=== PATIENT | male | born 1970 | race Caucasian/White ===

== ENCOUNTER 2023-02-01 09:01 | Outpatient (OUT) | payer BC, SELFPAY ==
--- NOTE | 2023-02-01 09:10 | XR_ITS ---
[address] [address] Patient Name: CRESCENCIO MATHEWS MRN: [id number] date: 1970 Sex: M Assigned Patient Location: [facility] Current Patient Location: [facility] Accession/Order Number: [id number] Exam Date: 02/01/2023 09:15 Report Date: 02/01/2023 09:44 At the request of: MERLINE SIERRA Procedure: XR clavicle RT PROCEDURE: XR shoulder RT min 2V, XR clavicle RT HISTORY: Right Clavicle Pain M89.8X1 ; chronic right shoulder pain, limited range of motion, no known injury COMPARISON: None. FINDINGS: BONES:Slight narrowing of the acromioclavicular joint and small undersurface osteophyte. Unremarkable humeral head and glenohumeral joint. SOFT TISSUES:No visible soft tissue swelling. EFFUSION:None visible. OTHER: Negative. XR/XR clavicle RT IMPRESSION: 1. No acute bone abnormality. 2. Mild degenerative changes of the acromioclavicular joint which could predispose to rotator cuff injury. Electronically authenticated by: FREEDOM CA Date: 02/01/2023 09:44
--- NOTE | 2023-02-01 09:11 | XR_ITS ---
The [address] [address] Patient Name: CRESCENCIO MATHEWS MRN: [id number] date: 1970 Sex: M Assigned Patient Location: [facility] Current Patient Location: [facility] Accession/Order Number: [id number] Exam Date: 02/01/2023 09:15 Report Date: 02/01/2023 09:44 At the request of: MERLINE SIERRA Procedure: XR shoulder RT min 2V PROCEDURE: XR shoulder RT min 2V, XR clavicle RT HISTORY: Right Clavicle Pain M89.8X1 ; chronic right shoulder pain, limited range of motion, no known injury COMPARISON: None. FINDINGS: BONES:Slight narrowing of the acromioclavicular joint and small undersurface osteophyte. Unremarkable humeral head and glenohumeral joint. SOFT TISSUES:No visible soft tissue swelling. EFFUSION:None visible. OTHER: Negative. XR/XR shoulder RT min 2V IMPRESSION: 1. No acute bone abnormality. 2. Mild degenerative changes of the acromioclavicular joint which could predispose to rotator cuff injury. Electronically authenticated by: FREEDOM CA Date: 02/01/2023 09:44
== END 2023-02-01 09:02 | disposition home or self-care (01) ==
LOC: RAD 09:05
PROVIDERS: PCP Family Medicine; Visit Provider Family Medicine
DX: M25.511 Pain in right shoulder (principal); M89.8X1 Other specified disorders of bone, shoulder
CPT/HCPCS: 73000; 73030

== ENCOUNTER 2023-02-12 13:23 | Outpatient (OUT) | payer BC, SELFPAY ==
--- NOTE | 2023-02-12 13:27 | MR_ITS ---
[address] [address] Patient Name: CRESCENCIO MATHEWS MRN: [id number] date: 1970 Sex: M Assigned Patient Location: MRI Current Patient Location: MRI Accession/Order Number: [id number] Exam Date: 02/12/2023 14:02 Report Date: 02/12/2023 21:11 At the request of: MERLINE SIERRA Procedure: MR shoulder RT wo con EXAM: MR shoulder RT wo con HISTORY: Right shoulder pain COMPARISON: X-rays 02/01/2023 TECHNIQUE: Multiplanar, multi sequential MRI sequences were performed. FINDINGS: Moderate degenerative changes of the acromioclavicular joint consistent with capsular hypertrophy, osteophytes and irregularity of the distal clavicle and adjacent acromion articular surfaces and subchondral bone. This complex mildly indents on the dorsal fibers of the supraspinatus myotendinous junction (sagittal 7 and coronal 11). Mild amount of reactive fluid within the subacromial-subdeltoid space. Age-related changes of the coracoacromial ligament. The coracohumeral and coracoclavicular ligaments exhibit no gross visualized abnormality. Osteophytes are present off the humeral head. No fracture, dislocation, subluxation or osseous lesion. Small glenohumeral joint effusion. The superficial soft tissues are free of edema, hematoma, mass or cyst. Thickening and interstitial edema of the subscapularis tendon with an longitudinal interstitial signal irregularity suggesting a longitudinal split (axial 16 and sagittal 9). No avulsion from the humeral head. Thickening and interstitial edema of the supraspinatus and infraspinatus tendons with no discrete tear. The teres minor tendon appears unremarkable. No muscle edema, hematoma, atrophy or fatty infiltration. No avulsion of the biceps tendon long head from the supraglenoid tubercle or bicipital tunnel. The biceps tendon long head exhibits no gross tear. No gross irregularity the biceps labral anchor. No gross irregularity of the glenoid labrum, however, mild fraying of the posterior superior aspect approximately the 11:00 position cannot be excluded. Thinning of the cephalad cartilage of the humeral head with partial thickness surface irregularities. Mild thickening of the glenoid cartilage. No gross visualized full-thickness chondral defect. MR/MR shoulder RT wo con IMPRESSION: 1. Thickening and interstitial edema of the subscapularis tendon with an vertical interstitial signal irregularity suggesting a longitudinal split. 2. Supraspinatus and infraspinatus tendinopathy. 3. Questionable fraying of the posterior superior aspect of the glenoid labrum. 4. Humeral head and glenoid cartilage loss. 5. Moderate acromioclavicular joint degenerative changes and a constellation of findings suggesting external impingement. Electronically authenticated by: JOSE ANTONIO EDMOND Date: 02/12/2023 21:11
== END 2023-02-12 13:24 | disposition home or self-care (01) ==
LOC: MRI 13:23
PROVIDERS: PCP Family Medicine; Visit Provider Family Medicine
DX: S46.001A Unspecified injury of muscle(s) and tendon(s) of the rotator cuff of right shoulder, initial encounter (principal)
CPT/HCPCS: 73221

== ENCOUNTER 2024-06-05 07:00 | Outpatient (OUT) | payer BC, SELFPAY ==
[2024-06-05 07:21] LABS: Basophils Percent Auto 0.3 % (0.2-2.0); Eosinophils Absolute Auto 0.1 10^3/uL (0.0-0.7); Eosinophils Percent Auto 1.7 % (0.9-7.0); Hematocrit 45.5 % (42.0-54.0); Hemoglobin 15.2 g/dL (14.0-18.0); Immature Granulocytes Abs Auto 0.07 10^3/uL (0.00-0.03); Lymphocytes Absolute Auto 2.1 10^3/uL (1.2-3.8); Lymphocytes Percent Auto 29.2 % (20.5-60.0); Mean Corpuscular HGB Conc 33.4 g/dL (29.9-35.2); Mean Corpuscular Hemoglobin 29.4 pg (25.9-34.0); Mean Platelet Volume 9.7 fL (9.5-13.5); Monocytes Absolute Auto 0.6 10^3/uL (0.3-0.8); Neutrophils Absolute Auto 4.3 10^3/uL (1.4-6.5); Neutrophils Percent Auto 59.8 % (43.0-75.0); Platelet Count 255 10^3/uL (150-450); Red Blood Count 5.17 10^6/uL (4.70-6.10); White Blood Count 7.2 10^3/uL (4.0-11.0)
[2024-06-05 08:12] LABS: Estimated Average Glucose 111 mg/dL; Glycohemoglobin A1C 5.5 % (4.5-6.2)
[2024-06-05 14:29] LABS: Alanine Aminotransferase 28 U/L (16-63); Albumin Globulin Ratio 1.2; Albumin Level 3.8 g/dL (3.4-5.0); Alkaline Phosphatase 90 U/L (46-116); Anion Gap 12.3; Aspartate Amino Transferase 9 U/L (15-37); BUN Creatinine Ratio 17.2; Bilirubin Direct 0.1 mg/dL (0.0-0.2); Calcium 8.7 mg/dL (8.5-10.1); Carbon Dioxide 29.8 mmol/L (21.0-32.0); Chloride 106 mmol/L (98-107); Chol HDL Ratio 4.9; Cholesterol 176 mg/dL (<=200); Estimated GFR (African America >60 (>=60 mL/min/1.73m^2); Estimated GFR (Non-African Ame >60 (>=60 mL/min/1.73m^2); Globulin 3.2 g/dL; Glucose 83 mg/dL (74-106); HDL Cholesterol 36 mg/dL (40-60); Potassium 4.1 mmol/L (3.5-5.1); Sodium 144 mmol/L (136-145); Triglycerides 90 mg/dL (<=150)
[2024-06-06 22:59] LABS: Bilirubin Total 0.5 mg/dL (0.2-1.0)
== END 2024-06-05 07:01 | disposition home or self-care (01) ==
LOC: LAB 07:00
PROVIDERS: PCP Family Medicine; Visit Provider Family Medicine
DX: Z00.00 Encounter for general adult medical examination without abnormal findings (principal)
CPT/HCPCS: 36415; 80048; 80061; 80076; 83036; 84443; 85025; G0103

== ENCOUNTER 2025-03-17 14:46 | Outpatient (OUT) | payer BC, SELFPAY ==
--- OUTSIDE RECORDS SUMMARY | 2025-03-17 14:55 | XMS_ITS | Clinical Summary ---
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 Take before meals. 90 tablet 5Active sertraline (Zoloft) 100 MG tablet Indications:Major depressive disorder, recurrent, mild,Major depressive disorder, recurrent episode, mildTAKE 1 TABLET BY MOUTH EVERYDAY AT BEDTIME 90 tablet 5Active Active Problems ProblemNoted DateDiagnosed DateAdult enmhlvwwvsglap20/13/2025Primary osteoarthritis of right xtivlslw66/09/2025nnual physical exam06/04/2024 Assessment & Plan (06/04/2024 3:18 PM EST): Due for labs. Discussed proper diet and regular aerobic exercise. Need aerobic exercise 5-6 days a week for 30 minutes at a time. Smaller portions and limit total calories. Colonoguard normal in 2022. Tetanus every 10 years. Advised not to smoke. Class 2 obesity due to excess calories without serious comorbidity with body mass index (BMI) of 36.0 to 36.9 in adult06/04/2024MDD (major depressive disorder), recurrent episode, mild06/04/2024OSA (obstructive sleep apnea) 01/09/2025Diastasis recti06/04/2024 Assessment & Plan (06/04/2024 3:19 PM EST): Noted bulging in ventral abdomen with valsalva and likely diastasis recti. Discussed benign nature of condition and monitor. If develop increased pain or lump increases in size will need to see general surgery. Encounters DateTypeDepartmentCare LtraInqwsmkqvli54/14/2025[facility] [address] [place] [address] Jordan Dickerson MD Major depressive disorder, recurrent, mild ; Major depressive disorder, recurrent episode, mild12/28/2024Ref[facility] [address] [place] [address] Jordan Dickerson MD Adult hypothyroidismfrom Last 3 Months Social History Tobacco UseTypesPacks/DayYears UsedDateSmoking Tobacco: NeverSmokeless Tobacco: Current Tobacco Cessation:Ready to Q uit: Not Asked; Counseling Given: Not Answered Sex and Gender InformationValueDate RecordedSex Assigned at BirthNot on file Legal SywEkrm7208/08/2022 7:20 PM EDTGender IdentityNot on fileSexual Orientation Not on file Last Filed Vital Signs Vital SignReadingTime TakenCommentsBlood Yxcwavyo515/78006/04/2024 2:50 PM EST Riepl2037/09/2025 2:50 PM KGJFegfjeubqll75.6 ??C (97.9 ??F)06/04/2024 2:50 PM ESTRespiratory Rate--Oxygen Uyfnvprnyx29%06/04/2024 2:50 PM ESTInhaled Oxygen Concentration--Jxewts007 kg (245 lb)06/04/2024 2:50 PM RASSdbnzb845.3 cm (5' 9 ) 06/04/2024 2:50 PM ESTBody Mass Index36.18006/04/2024 2:50 PM EST Plan of Treatment Health MaintenanceDue DateLast DoneCommentsCT Gqydkhkjhfon1971Colonoscopy 1970FIT1971FOBT1970 6061Ecadbcnydblrs1971Influenza Vaccine (#1)5Colorectal Cancer Ktczbyime52/01/2026FIT-DNA6010/25/2022 Insurance * Guarantor: VikashhiroJusticeAccount TypeRelation to PatientDate of PhoneBilling AddressPersonal/QftfkiRfyy1970 [address] [address] Care Teams Team MemberRelationshipSpecialtyStart DateEnd Date Jordan Dickerson MD PCP - GeneralFamily Medicine12/25/22 Jordan Dickerson MD [address] [facility] [place] [address] PCP - [place] [facility]07/25/24
--- OUTSIDE RECORDS SUMMARY | 2025-03-17 14:57 | XMS_ITS | CCD ---
Author Organization [facility] Care Team Providers Care Staff Electrical Engineer Name Role Phone Jenny Ga Unavailable Ramon Sorto Unavailable ZACHARY CALDERÓN Consulting Unavailable RADHA, DR SALCEDO Attending Unavailable BALL, DR SALCEDO Admitting Unavailable BALL, DR SALCEDO Primary Care Unavailable KAITLYNN, ZACHARY Consulting Unavailable KAITLYNN, ZACHARY Attending Unavailable BALL, DR SALCEDO Primary Care Unavailable KAITLYNN, ZACHARY Admitting Unavailable NADERER, DR JORDAN Price Consulting Unavailable NADERER, DR JORDAN Price Attending Unavailable NADERER, DR JORDAN Price Admitting Unavailable NADERER, DR JORDAN Price Primary Care Unavailable NADERER, DR JORDAN Price Primary Care Unavailable NADERER, DR JORDAN Price Consulting Unavailable NADERER, DR JORDAN Price Attending Unavailable NADERER, DR JORDAN Price Admitting Unavailable KAITLYNN, ZACHARY Consulting Unavailable KAITLYNN, ZACHARY Attending Unavailable KAITLYNN, ZACHARY Admitting Unavailable BALL, DR SALCEDO Primary Care Unavailable Jordan Sierra MD Primary Care Provider [phone] JORDAN SIERRA Attending Unavailable Medications Current Medications MedicationDrug Class(es)DatesSig (Normalized)Sig (Original)acetaminophen 325 mg / HYDROcodone bitartrate 5 mg oral tablet (2 sources)Opioid AgonistStart: 14-96-7578wxly 1 tablet by mouth every four to six hours as neededHYDROcodone-Acetaminophen 5-325 MG 1 tablet as needed Orally every 4-6 hrs for 7 days Dec, Activecephalexin 500 mg oral tablet (2 sources)Cephalosporin AntibacterialStart: 58-51-3466tzhb 1 tablet by mouth every eight hoursCephalexin 500 MG 1 tablet Orally TID for 3 days Dec, Activelevothyroxine sodium 0.075 mg oral tablet (1 source)l-ThyroxineStart: 94-62-4126eeuc 1 tablet by mouth before mealtime levothyroxine (Synthroid) 75 MCG tablet Indications: Adult hypothyroidism (CMS/HCC) Take 1 tablet (75 mcg) by mouth in the morning. Take before meals. 30 tablet 2 06/08/2024 Activesertraline 100 mg oral tablet (7 sources)Serotonin Reuptake InhibitorStart: 01-73-3577pvfy 1 tablet by mouth once daily at bedtimesertraline (Zoloft) 100 MG tablet Indications: Major depressive disorder, recurrent, mild (HCC) (CMS/HCC) , Major depressive disorder, recurrent episode, mild (HCC) (CMS/HCC) TAKE 1 TABLET BY MOUTH EV ERYDAY AT BEDTIME 90 tablet 3 12/27/2023 Activetake 1 tablet by mouth once daily Sertraline HCl 100 MG 1 tablet Orally Once a day Active Problems Active Problems Problem ClassificationProblemDateDocumented DateEpisodic/ChronicMood disorders (4 sources)Recurrent major depressive episodes, mild ; Translations: [Major depressive disorder, recurrent, mild]Onset: hronic Osteoarthritis (4 sources)Osteoarthritis of joint of right shoulder region; Translations: [Primary osteoarthritis, right shoulder]Onset: 443234-37-4544HrigsuwUijto connective tissue disease (6 sources)Diastasis recti; Translations: [Separation of muscle (nontraumatic), other site]Onset: 938864-96-7620JecuncmvGvugd nutritional; endocrine; and metabolic disorders (4 sources)Obesity caused by energy imbalance; Translations: [Class 2 obesity due to excess calories without serious comorbidity with body mass index (BMI) of 36.0 to 36.9 in adult]Onset: 220068-55-7259KuhxlfqNxzgotoy codes; unclassified (4 sources)Obstructive sleep apnea syndrome; Translations: [Obstructive sleep apnea (adult) (pediatric)]Onset: 828329-86-1323XjblupdTdtebsl disorders (2 sources)Hypothyroidism; Translations: [Hypothyroidism, unspecified]Onset: 999575-93-4863QizthdtXtizfghgsnid (3 sources)CONTACT W/AND (SUSP) EXPOS COVID-19; Translations: [CONTACT W/AND (SUSP) EXPOS COVID-19]Onset: 48-48-3370Lgton infection (1 source)COVID-19; Translations: [COVID-19]Onset: 08-31-2022 Past or Other Problems Problem ClassificationProblemDateDocumented DateEpisodic/Chronic Administrative/social admission (4 sources)Encounter for pre-employment examination; Translations: [ENCOUNTER FOR PRE-EMPLOYMENT EXAM]Onset: 24-62-6860RtsvdatuNnszs disorders and dislocations; trauma-related (1 source)Other tear of medial meniscus, current injury, right knee, subsequent encounterOnset: 04-13-2021 Resolved: 54-82-0757ZqppjcgiAsgatyax codes; unclassified (1 source)Other specified postprocedural statesOnset: 04-13-2021 Resolved: 35-65-1560YhgefyqdByaurpmiqoia (1 source)CONTACT W/AND (SUSP) EXPOS COVID-19; Translations: [CONTACT W/AND (SUSP) EXPOS COVID-19]Onset: 09-01-2022 Results Test NameValueInterpretationReference RangeFacilityALL CBC WITH AUTO DIFFon [id number] ABSOLUTE ECTT1TDCI HealthcareBasophils/100 WBC (Bld)0.3 %0.2 - 2.0 %[facility]OM[facility] HealthcareEosinophils/100 WBC (Bld)1.7 %0.9 - 7.0 %[facility] Erythrocyte distribution width (RBC) [Ratio]12 %11.0 - 15.0 %[facility] Hematocrit (Bld) [Volume fraction]45.5 %42.0 - 54.0 %[facility] HealthcareHemoglobin (Bld) [Mass/Vol]15.2 g/dL14.0 - 18.0 g/dLNOMS HealthcareIMMATURE GRANULOCYTES ABS AUTO0.07HighNOMS HealthcareImmature granulocytes/100 WBC (Bld)1 %High0.0 - 0.5 %[facility] HealthcareInterpretation and review of laboratory resultsAbnormalNOMS HealthcareLYMPHOCYTES ABSOLUTE AUTO2.1NOMS HealthcareLymphocytes/100 WBC (Bld) 29.2 %20.5 - 60.0 %[facility] HealthcareMCH (RBC) [Entitic mass]29.4 pg25.9 - 34.0 pg [facility]Po[facility] HospitalMCHC (RBC) [Mass/Vol]33.4 g/dL29.9 - 35.2 g/dLCenterPointe HospitalMCV (RBC) [Entitic vol]88 fL80.0 - 94.0 fLCenterPointe HospitalMONOCYTES ABSOLUTE AUTO0.6 NOM HealthcareMonocytes/100 WBC (Bld)8 %1.7 - 12.0 %[facility] HealthcareNEUTROPHILS ABSOLUTE AUTO4.3NONY HealthcareNeutrophils/100 WBC (Bld)59.8 %43.0 - 75.0 %[facility] HealthcarePlatelet mean volume (Bld) [Entitic vol]9.7 fL9.5 - 13.5 fLCenterPointe HospitalTBH EO #0.1NOMS HealthcareTBH [id number] Midwest DivisionTB RBC5.17NOMS [facility] WBC7.2NOMS HealthcareCLINISYNCNCedar County Memorial HospitalGLYCOHEMOGLOBIN A1Con 35-95-4368XQV RECOMMENDATIONSEE BELOWLakeHealth TriPoint Medical CenterComment on above:Result Comment: ADA RECOMMENDED LIMIT 4.0 - 6.0 ADA THERAPEUTIC TARGET < 7.0 ACTION SUGGESTED > 7.0Performed By: #### HEPBSRF #### [facility] [address] [place] [address] Dr. Jaspreet CansecoGlucose [Mass/Vol]117 mg/dLLakeHealth TriPoint Medical CenterComment on above:Performed By: #### HEPBSRF #### [facility] [address] [place] [address] Dr. Jaspreet CansecoHbA1c (Bld) [Mass fraction]5.7 %Normal4.5-6.2The [facility] HospitalComment on above:Performed By: #### HEPBSRF #### [facility] [address] [place] [address] Dr. Jaspreet RamirezC AUTO DIFFon [id number] #0.0 103/ulNormal0.0-0.1The [facility] HospitalComment on above:Performed By: #### CBC #### [facility] [address] [place] [address] Dr. Jaspreet CansecoBasophils/100 WBC (Bld)0.4 %Normal0.2-2.0The [facility] Comment on above:Performed By: #### CBC #### [facility] [address] [place] [address] Dr. Jaspreet Montanez #0.1 103/ulNormal0.0-0.7The [facility] HospitalComment on above: Performed By: #### CBC #### [facility] [address] [place] [address] Dr. Jaspreet Alejandraosinophils/100 WBC (Bld)1.7 %Normal0.9-7.0The [facility] Comment on above:Performed By: #### CBC #### [facility] [address] [place] [address] Dr. Jaspreet Alejandrarythrocyte distribution width (RBC) [Ratio]12.6 %Bgsuvc06.0-15.[address] [facility] HospitalComment on above:Performed By: #### CBC #### [facility] [address] [place] [address] Dr. Jaspreet CansecoHematocrit (Bld) [Volume fraction]42.7 %Phhbjv08.0-54.0The [facility] HospitalComment on above:Performed By: #### CBC #### [facility] [address] [place] [address] Dr. Jaspreet CansecoHemoglobin (Bld) [Mass/Vol]14.2 g/yJVyelnv40.0-18.0The [facility] HospitalComment on above:Performed By: #### CBC #### [facility] [address] [place] [address] Dr. Jaspreet Melo #0.04 10e3/ulCritically high0.00-0.03The [facility] Comment on above:Performed By: #### CBC #### [facility] [address] [place] [address] Dr. Jaspreet Melo %0.5 %Normal0.0-0.5The [facility] HospitalComment on above: Performed By: #### CBC #### [facility] [address] [place] [address] Dr. Jaspreet Koo #2.3 103/ulNormal1.2-3.8The [facility] HospitalComment on above:Performed By: #### CBC #### [facility] [address] [place] [address] Dr. Jaspreet Blancashocytes/100 WBC (Bld)29.1 %Njbgjn19.5-60.0The [facility] HospitalComment on above:Performed By: #### CBC #### [facility] [address] [place] [address] Dr. Jaspreet Pickett DIFF REQNONormalThe [facility] HospitalComment on above: Performed By: #### CBC #### [facility] [address] [place] [address] Dr. Jaspreet Hodges (RBC) [Entitic mass]28.7 qgOtsqyu96.9-34.0The [facility] HospitalComment on above:Performed By: #### CBC #### [facility] [address] [place] [address] Dr. Jaspreet Hodges (RBC) [Mass/Vol]33.3 g/oORdcdly93.9-35.2The [facility] HospitalComment on above:Performed By: #### CBC #### [facility] [address] [place] [address] Dr. Jaspreet Hodges (RBC) [Entitic vol]86.4 aZKtllkv32.0-94.0The [facility] HospitalComment on above:Performed By: #### CBC #### [facility] [address] [place] [address] Dr. Jaspreet Landon #0.6 103/ulNormal0.3-0.8The [facility] HospitalComment on above:Performed By: #### CBC #### [facility] [address] [place] [address] Dr. Jaspreet Haydenocytes/100 WBC (Bld)7.1 %Normal1.7-12.0The [facility] Comment on above:Performed By: #### CBC #### [facility] [address] [address] [address] Jaspreet TurkUT #4.7 103/ulNormal1.4-6.5The [facility] HospitalComment on above:Performed By: #### CBC #### [facility] [address] [place] [address] Dr. Jaspreet Turkutrophils/100 WBC (Bld)61.2 %Msbkyb51.0-75.0The [facility] HospitalComtrinity health [facility] on above:Performed By: #### CBC #### [facility] [address] [place] [address] Dr. Jaspreet CansecoPlatelet mean volume (Bld) [Entitic vol]9.6 fLNormal9.5-13.5The [facility] on above:Performed By: #### CBC #### [facility] [address] [place] [address] Dr. Jaspreet CansecoPLT224 103/wtBtlebb276-350Aqd [facility] on above: Performed By: #### CBC #### [facility] [address] [place] [address] Dr. Jaspreet CansecoRBC4.94 106/ulNormal4.70-6.10The [facility] HospitalComtrinity health [facility] on above:Performed By: #### CBC #### [facility] [address] [place] [address] Dr. Jaspreet CansecoWBC7.7 103/ulNormal4.0-11.0The [facility] HospitalComtrinity health [facility] on above: Performed By: #### CBC #### [facility] [address] [place] [address] Dr. Jaspreet CansecoGLYCOHEMOGLOBIN A1Con [id number] RECOMMENDATIONSEE BELOWNormal [facility] HospitalComtr[facility] on above:Result Comment: ADA RECOMMENDED LIMIT 4.0 - 6.0 ADA THERAPEUTIC TARGET < 7.0 ACTION SUGGESTED > 7.0Performed By: #### HEPBSRF #### [facility] [address] [place] [address] Dr. Jaspreet CansecoGlucose [Mass/Vol]108 mg/dLNormalThe [facility]el HospitalComment on above:Performed By: #### HEPBSRF #### [facility] [address] [address] [address] Jaspreet CansecoHbA1c (Bld) [Mass fraction]5.4 %Normal4.5-6.2The [facility]omerene Hospitalment on above:Performed By: #### HEPBSRF #### [facility] [address] [address] [address] Jaspreet CasanovaID PROFILEon [id number]-HDL RATIO NORMSEE CentervilleComtr[facility] on above:Result Comment: 3.3 - 4.4 LOW RISK 4.4 - 7.1 AVERAGE RISK 7.1 - 11.0 MODERATE RISK >11.0 HIGH RISKPerformed By: #### LIVER, BMP, LIPID, TSH #### [facility] [address] [address] [address] Jaspreet Calabreseesterol [Mass/Vol]168 mg/dLNormal<=200The [facility] Comment on above:Performed By: #### LIVER, BMP, LIPID, TSH #### [facility] [address] [address] [address] Jaspreet Calabreseesterol in HDL [Mass/Vol]34 mg/dLCritically grr68-30Jvp [facility] on above:Performed By: #### LIVER, BMP, LIPID, TSH #### [facility] [address] [address] [address] Jaspreet CansecoCholesterol in LDL [Mass/Vol]114.6 mg/dLNoHolzer Health SystemComment on above:Performed By: #### LIVER, BMP, LIPID, TSH #### [facility] [address] [address] [address] Jaspreet Calabreseesteraurelia.total/Cholesterol in HDL [Mass ratio]4.9 {ratio} NormalThe [facility]omerene Hospitalment on above:Performed By: #### LIVER, BMP, LIPID, TSH #### [facility] [address] [address] [address] Jaspreet TaylorL NORMAL> or = 60 mg/dl - LOW CARDIOVASCULAR RISK <40 mg/dl - HIGH CARDIOVASCULAR RISKLakeHealth TriPoint Medical CenterComment on above:Performed By: #### LIVER, BMP, LIPID, TSH #### [facility] [address] [place] [address] Dr. Jaspreet Cardenas CALC NORMALSEE BELOWLakeHealth TriPoint Medical CenterComment on above:Result Comment: <100 mg/dl OPTIMAL 100 - 129 mg/dl NEAR OR ABOVE OPTIMAL 130 - 159 mg/dl BORDERLINE HIGH 160 - 189 mg/dl HIGH >190 mg/dl VERY HIGH Performed By: #### LIVER, BMP, LIPID, TSH #### [facility] [address] [place] [address] Dr. Jaspreet CansecoTriglyceride [Mass/Vol]97 mg/dLNormal<=150The [facility] Comment on above:Performed By: #### LIVER, BMP, LIPID, TSH #### [facility] [address] [place] [address] Dr. Jaspreet MarksLDL CALC19.4 mg/dLNoHolzer Health SystemComment on above: Performed By: #### LIVER, BMP, LIPID, TSH #### [facility] [address] [place] [address] Dr. Jaspreet Nolen PROFILEon 59-07-4213Kvjsqkl [Mass/Vol]3.9 g/dLNormal3.4-5.[address] [facility] HospitalComment on above:Performed By: #### LIVER, BMP, LIPID, TSH #### [facility] [address] [place] [address] Dr. Jaspreet CansecoAlbumin/Globulin [Mass ratio]1.1 {ratio}NormalThe [facility] HospitalComment on above:Performed By: #### LIVER, BMP, LIPID, TSH #### [facility] [address] [place] [address] Dr. Jaspreet Ferrer [Catalytic activity/Vol]91 U/WNklcwg88-678Mgq [facility] HospitalComment on above:Performed By: #### LIVER, BMP, LIPID, TSH #### [facility] [address] [place] [address] Dr. Yilan ChangALT [Catalytic activity/Vol]40 U/CQgwvfj64-20Uhv [facility] HospitalComment on above:Performed By: #### LIVER, BMP, LIPID, TSH #### [facility] [address] [address] [address] Jaspreet CansecoAST [Catalytic activity/Vol]26 U/KNrsrqp37-43Aui [facility] HospitalComment on above:Performed By: #### LIVER, BMP, LIPID, TSH #### [facility] [address] [address] [address] Jaspreet MarieI, CONJUGATED0.1 mg/dLNormal0.0-0.2[facility] Comment on above:Performed By: #### LIVER, BMP, LIPID, TSH #### [facility] [address] [place] [address] Dr. Jaspreet Marieirubin [Mass/Vol]0.6 mg/dLNormal0.2-1.0[facility] Comment on above:Performed By: #### LIVER, BMP, LIPID, TSH #### [facility] [address] [place] [address] Dr. Jaspreet CansecoGlobulin (S) [Mass/Vol]3.4 g/dLNormalThe [facility] HospitalComment on above:Performed By: #### LIVER, BMP, LIPID, TSH #### [facility] [address] [place] [address] Dr. Jaspreet CansecoProtein [Mass/Vol]7.3 g/dLNormal6.4-8.2[facility] Comment on above:Performed By: #### LIVER, BMP, LIPID, TSH #### [facility] [address] [place] [address] Dr. Jaspreet CansecoPROF CHEM 8 (BAS METB)on 68-69-1142Tuyrc gap [Moles/Vol]11.2 mmol/LNormalWadsworth-Rittman HospitalComment on above:Performed By: #### LIVER, BMP, LIPID, TSH #### [facility] [address] [place] [address] Dr. Jaspreet CansecoCalcium [Mass/Vol]8.7 mg/dLNormal8.5-10.1[facility] Comment on above:Performed By: #### LIVER, BMP, LIPID, TSH #### [facility] [address] [address] [address] Jaspreet CansecoChloride [Moles/Vol]106 mmol/PMxhjhq07-366Cau [facility] Comment on above:Performed By: #### LIVER, BMP, LIPID, TSH #### [facility] [address] [place] [address] Dr. Jaspreet CansecoCO2 [Moles/Vol]25.9 mmol/GKleozl73.0-32.0The [facility] Comment on above:Performed By: #### LIVER, BMP, LIPID, TSH #### [facility] [address] [place] [address] Dr. Jaspreet CansecoCreatinine [Mass/Vol]1.06 mg/dLNormal0.70-1.30The [facility] HospitalComment on above:Performed By: #### LIVER, BMP, LIPID, TSH #### [facility] [address] [place] [address] Dr. Jaspreet AlejandraGFR-AF SOUTH AFRICAN>60Normal>=60The [facility] HospitalComment on above:Performed By: #### LIVER, BMP, LIPID, TSH #### [facility] [address] [place] [address] Dr. Jaspreet AlejandraGFR-NON AF SOUTH AFRICAN>60Normal>=60The [facility] HospitalComment on above:Performed By: #### LIVER, BMP, LIPID, TSH #### [facility] [address] [place] [address] Dr. Jaspreet CansecoGlucose [Mass/Vol]112 mg/dLCritically mwdn63-597Rot [facility] HospitalComment on above:Performed By: #### LIVER, BMP, LIPID, TSH #### [facility] [address] [place] [address] Dr. Jaspreet CansecoPotassium [Moles/Vol]4.1 mmol/LNormal3.5-5.1[facility] Comment on above:Performed By: #### LIVER, BMP, LIPID, TSH #### [facility] [address] [address] [address] Jaspreet CansecoSodium [Moles/Vol]139 mmol/QEdyfdj731-222Nyi [facility] Comment on above:Performed By: #### LIVER, BMP, LIPID, TSH #### [facility] [address] [place] [address] Dr. Jaspreet Yan nitrogen [Mass/Vol]19.0 mg/dLCritically high7.0-18.0The [facility] HospitalComment on above:Performed By: #### LIVER, BMP, LIPID, TSH #### [facility] [address] [place] [address] Dr. Jaspreet Yan nitrogen/Creatinine [Mass ratio]17.9 mg/mgNormalThe [facility] HospitalComment on above:Performed By: #### LIVER, BMP, LIPID, TSH #### [facility] [address] [place] [address] Dr. Jaspreet Arita 69-11-0303CZG0.314 uIU/mLNormal0.358-3.740The [facility] HospitalComment on above:Performed By: #### LIVER, BMP, LIPID, TSH #### [facility] [address] [place] [address] Dr. Jaspreet NickMPTOMATIC COVID-19 ANTIGENon [id number] StatementSEE BELOW NormalThe [facility] on above:Result Comment: This test has not been FDA cleared or approved, but has been authorized by the FDA under an Emergency Use Authorization (EUA) for use by authorized laboratories certified under CLIA that meet the requirements to perform moderate or high complexity testing. This test has been authorized only for the detection of proteins from SARS-CoV-2, not for any other viruses or pathogens. The emergency use of this test is authorized for the duration of the declaration that circumstances exist justifying the authorization of emergency use of in vitro diagnostic tests for detection and/or diagnosis of Covid-19 under section 564(b)(1) of the Act, 21 U.S.C. 360bbb-3(b)(1), unless the declaration is terminated or authorization is revoked sooner.Performed By: #### HEPBSRF #### [facility] [address] [place] [address] Dr. Jaspreet Sheffield-CoV-2 (COVID-19) RNA ALEXANDER+probe Ql (Unsp spec)NegativeNormal NEGATIVEThe [facility] on above:Performed By: #### HEPBSRF #### [facility] [address] [place] [address] Dr. Jaspreet CansecoCovid-19 PCR ([facility])on [id number]-CoV-2 (COVID-19) RNA ALEXANDER+probe Ql (Unsp spec)DetectedAbnormalNOT DETECTEDThe [facility] on above:Result Comment: This test is not yet approved or cleared by the [place] FDA. When there are no FDA-approved or cleared tests available, and other criteria are met, FDA can make tests available under an emergency access mechanism called an Emergency Use Authorization (EUA). The EUA for this test is supported by the Manager Part of Health and Human Service's declaration that circumstances exist to justify the emergency use of in vitro diagnostics for the detection and/or diagnosis of the virusthat causes COVID-19. This EUA will remain in effect for the duration of the COVID-19 declaration justifying emergency of IVDs, unless it is terminated or revoked by the FDA (after which the test mayno longer be used).Performed By: #### HEPBSRF #### [facility] [address] [place] [address] Dr. Jaspreet CansecoINFLKAMLESHNZA A AND B AGon [id number] [facility] on above:Result Comment: Negative for Flu A protein angiten. Infection due to Flu A cannot be ruled out. FluA angiten in the sample may be below the detection limit of the test.Performed By: #### INFLUAB #### [facility] [address] [place] [address] Dr. Jaspreet CansecoINFLUBNEGHSMIHIR [facility] on above: Result Comment: Negative for Flu B protein antigen. Infection due to Flu B cannot be ruled out. FluB antigen in the sample may be below the detection limit of the test.Performed By: #### INFLUAB #### [facility] [address] [place] [address] Dr. Jaspreet Price AGNegativeNormalNEGATIVE SEE COMMENTThe [facility] HospitalComment on above:Performed By: #### INFLUAB #### [facility] [address] [place] [address] Dr. Jaspreet Rose AGNegativeNormalNEGATIVE SEE COMMENTThe [facility] HospitalComment on above:Performed By: #### INFLUAB #### [facility] [address] [place] [address] Dr. Jaspreet HsuMATIC COVID-19 ANTIGENon [id number] StatementSEE BELOW NormalThe [facility] HospitalComment on above:Result Comment: This test has not been FDA cleared or approved, but has been authorized by the FDA under an Emergency Use Authorization (EUA) for use by authorized laboratories certified under CLIA that meet the requirements to perform moderate or high complexity testing. This test has been authorized only for the detection of proteins from SARS-CoV-2, not for any other viruses or pathogens. The emergency use of this test is authorized for the duration of the declaration that circumstances exist justifying the authorization of emergency use of in vitro diagnostic tests for detection and/or diagnosis of Covid-19 under section 564(b)(1) of the Act, 21 U.S.C. 360bbb-3(b)(1), unless the declaration is terminated or authorization is revoked sooner.Performed By: #### CVDAGS #### [facility] [address] [place] [address] Dr. Jaspreet UrrutiaRS-CoV-2 (COVID-19) RNA ALEXANDER+probe Ql (Unsp spec)NegativeNormal NEGATIVEThe Bethel HospitalComment on above:Performed By: #### CVDAGS #### [facility] [address] [place] [address] Dr. Jaspreet CansecoQUANTIFERON TB GOLD PLUSon 27-96-7651HkeqzyHWHBR CriteriaComment NormalThe [facility] Charles HospitalComment on above:Result Comment: QuantiFERON-TB Gold Plus is a qualitative indirect test for M tuberculosis infection (including disease) and is intended for use in conjunction with risk assessment, radiography, and other medical and diagnostic evaluations. The QuantiFERON-TB Gold Plus result is determined by subtracting the Nil value from either TB antigen (Ag) value. The Mitogen tube serves as a control for the test.Performed By: #### HEPBSRF #### [facility] [address] [place] [address] Dr. Jaspreet Smith IncubationIncubation performed.NormalWadsworth-Rittman HospitalComment on above:Performed By: #### HEPBSRF #### [facility] [address] [place] [address] Dr. Jaspreet Smith Mitogen Value>10.00NoalThTriHealth Bethesda Butler HospitalComment on above:Performed By: #### HEPBSRF #### [facility] [address] [place] [address] Dr. Jaspreet Smith Nil Value0.03 IU/mLNormalWadsworth-Rittman HospitalComment on above:Performed By: #### HEPBSRF #### [facility] [address] [place] [address] Dr. Jaspreet Smith TB1 Ag Value0.06 IU/mLNMedina Hospital Comment on above:Performed By: #### HEPBSRF #### [facility] [address] [place] [address] Dr. Jaspreet Smith TB2 Ag Value0.05 IU/mLNMedina Hospital Comment on above:Performed By: #### HEPBSRF #### [facility] [address] [place] [address] Dr. Jaspreet Smith-TB Gold PlusNegativeNormalNegativeCleveland Clinic [facility] on above:Result Comment: No response to M tuberculosis antigens detected. Infection with M tuberculosis is unlikely, but high risk individuals should be considered for additional testing (ATS/IDSA/CDC Clinical Practice Guidelines, 2017). The reference range is an Antigen minus Nil result of <0.35 IU/mL. Chemiluminescence immunoassay methodologyPerformed By: #### HEPBSRF #### [facility] [address] [place] [address] Dr. Jaspreet Yan B SURFACE ANTIBODY, QUANTon 10-95-6877Tmoirugai B Surf AB Quant<3.1Critically lowImmunity>9.9The [facility] on above: Result Comment: Status of Immunity Anti-HBs Level Inconsistent with Immunity 0.0 - 9.9 Consistent with Immunity >9.9Performed By: #### HEPBSRF #### [facility] [address] [place] [address] Dr. Jaspreet CansecoMMR IMMUNITYon 10-78-1931Vgdui Abs, OrQ077.0 AU/mLNormalImmune >10.9The [facility]ome[facility] Hospitalment on above:Result Comment: Negative <9.0 Equivocal 9.0 - 10.9 Positive >10.9 A positive result generally indicates past exposure to Mumps virus or previous vaccination.Performed By: #### HEPBSRF #### [facility] [address] [place] [address] Dr. Jaspreet Ni Antibodies, IgG1.12 indexNormalImmune >0.99The [facility] on above:Result Comment: Non-immune <0.90 Equivocal 0.90 - 0.99 Immune >0.99Performed By: #### HEPBSRF #### [facility] [address] [place] [address] Dr. Jaspreet Hendrickson Ab, IgG<13.5Critically lowImmune >16.4The [facility] on above:Result Comment: Negative <13.5 Equivocal 13.5 - 16.4 Positive >16.4 Presence of antibodies to Rubeola is presumptive evidence of immunity except when acute infection is suspected.Performed By: #### HEPBSRF #### [facility] [address] [place] [address] Dr. Jaspreet CansecoVARICELLA IGG ABon 44-35-6627Xnavmehxc Zoster ZlS8681 indexNormal Immune >165The [facility] Hospitalment on above:Result Comment: Negative <135 Equivocal 135 - 165 Positive >165 A positive result generally indicates exposure to the pathogen or administration of specific immunoglobulins, but it is not indication of active infection or stage of disease.Performed By: #### VARCEL #### [facility] [address] [place] [address] Jaspreet [place] office Testingon 73-57-5512Eh office Testing [id number]#1.00CD:127NoOhioHealth Mansfield HospitalConsenton 43-02-6363Upnhvcg [id number]#1.00CD:127[facility] CampusRegistrationon 16-27-8401Wnipmkmhtwhy [id number]#1.00CD:[address] [place], [place] [address]COVID-19 FRMCon 07-56-6698YQSQ-CoV-2 (COVID-19) RNA ALEXANDER+probe Ql (Unsp spec)NegativeNormalNegativeClinton Memorial HospitalComment on above: Order Comment: Healthcare Worker?: NResult Comment: Testing for SARS-CoV-2 by RT-PCR This test was developed and its performance characteristics determined by [employer], [employer] and validated at the [facility]. This test has not been FDA cleared or approved. This test has been authorized by FDA under an Emergency Use Authorization (EUA). This test has been validated in accordance with the FDA's Guidance Document (Policy for Diagnostics Testing in Laboratories Certified to Perform High Complexity Testing under CLIA prior to Emergency Use Authorization for Coronavirus Disease-2019 during the Public Health Emergency) issued on August 27, 2019. This test is only authorized for the duration of time the declaration that circumstances exist justifying the authorization of the emergency use of in vitro diagnostic tests for detection of SARS-CoV-2 virus and/or diagnosis of COVID-19 infection under section 564(b)(1) of the Act, 21 U.S.C. 360bbb-3(b)(1), unless the authorization is terminated or revoked sooner. PERFORMED BY: [facility] [place] [id number] PATHOLOGIST DRAFTER [employer] SHARON BARTON M.D.Performed By: #### COVID 19 [facility] #### [facility] [address] [id number] [facility] Vital Signs Date TimeVital SignValuePerforming ApxdxkiljYejnpmil46-75-3040 14:50-0500Body skcgpi384.3 cmJordan Sierra MD Work Phone: [facility] HospitalGilgvpduwq83-34-8275 14:50-0500Body mass index (BMI) [Ratio]36.18 kg/m2Jordan Sierra MD Work Phone: [facility] HospitalInkorantdq41-06-3269 14:50-0500Body temperature 97.9 [degF]Jordan Sierra MD Work Phone: [facility] HospitalBtjngxcrjq53-73-4817 14:50-0500Body .13 kgJordan Sierra MD Work Phone: [facility] HospitalWvotzbfgty25-13-9316 14:50-0500Diastolic blood mm[Hg]Jordan Sierra MD Work Phone: noHCA Midwest DivisionXerejwyjnd53-14-1853 14:50-0500Heart rate72 /min Jordan Sierra MD Work Phone: [facility] HospitalTtikpoharl21-18-0034 14:50-2135PrP2% (BldA) [Mass fraction]95 %Jordan Sierra MD Work Phone: noHCA [facility] DivisionMbbsfevkrf26-53-6698 14:50-0500Systolic blood clrefbia813 mm[Hg]Jordan Sierra MD Work Phone: noHCA Midwest DivisionQbplmwyrxa71-48-3357 15:45-0500Body rtuimj745.34 cmThomas Olexa Other [employer] Other 11-18-2021 15:45-0500Body mass index (BMI) [Ratio] 32.07 kg/s0Hztowu [employer] Other [employer] Other 11-18-2021 15:45-0500Body yeqrmr367.33 kgThomas Olexa Other [employer] Other Encounters Encounter DateEncounter TypeCare ProviderFacilityStart: 06-08-2024 End: 64-15-7470Rjzirq OnlyJordan Sierra MD Work Phone: noms CWM FMComment on above:Adult hypothyroidism (CMS/HCC) (Primary Dx)Start: 06-05-2024 End: 65-01-4681Nogulexqx Result EncounterJordan Sierra MD Work Phone: noms External Department UnsolicitedStart: 06-05-2024 End: 71-68-4613Pladnlsrm Result EncounterJordan Sierra MD Work Phone: noms External Department UnsolicitedStart: 06-04-2024 End: 11-42-8043Kzkfprnb preventive med est patient 40-64yrsMarc Jayla GERBER Work Phone: noms CWM FMComment on above:Annual physical exam (Primary Dx); Diastasis rectiStart: 06-04-2024 End: 95-76-9915fhuodgdlvdEVNS NADERERNot AvailableStart: 06-04-2024 End: 99-86-7240Pkktva flowsChad Sierra MD Work Phone: noms CWM FMStart: 06-04-2024 End: 82-42-2352Pvfspx flowsChad Sierra MD Work Phone: noms CWM FMStart: 06-04-2024 End: 30-62-8658Wstthdx encounter procedureJordan Sierra MD Work Phone: [facility] Work Phone: Start: 10-08-2022 End: 65-46-5424kcolxzlbfnMQ JORDAN Price NADERERFacility:S4Bzxku: 10-05-2022 End: 10-52-8042ipboonykpvAD JORDAN A NADERERFacility:Z0Taiqf: 09-01-2022 End: 13-94-7754idgemcngrzVTPVOUNA EBERLYFacility:I8Rgpup: 08-25-2022 End: 71-97-6342dmazxkjdwaRPZIPXDS EBERLYFacility:B1Czzdx: 06-27-2022 End: 03-97-2185sbuhwjlmnbXjepocts Ball Other [employer] Other Start: 40-69-3826Weeemzehg encounterBemingo SortoFPMl Sorto Medical ClinicStart: 02-27-2022 End: 20-72-5772nzwmytoaosPRJHECXA EBERLYFacility:C7Xpjiz: 04-13-2021 End: 15-76-2333fvhdkphhyzWupuyl Olexa Other [employer] Other Start: 85-43-1410Rjqclf outpatient visit 15 minutes Ga OlexaFPG [facility] Procedures DateProcedureProcedure DetailPerforming ClinicianStart: 50-97-1348PYZ CBC WITH AUTO DIFFMarc Jayla GERBER Work Phone: Start: 12-10-4262GAK screeningKRISTINA EBERLYComment on above:Performed By: #### PSASC #### [facility] [address] [place] [address] Dr. Jaspreet Canseco Plan of Treatment DateCare ActivityDetailAuthorStart: 05-32-1431Fcfvmirkg for malignant neoplasm of colonNOMS HealthcareStart: 06-04-2024 End: 08-52-1991Zuafhna encounter rxlgqyont86/09/2025 2:45 PM EST Office Visit [facility] [address] [place] [address] Jordan Sierra MD [address] [place] [address] ArrivedNOMS CWM FMComment on above:ArrivedStart: 06-04-2024 End: 74-20-2717Eaaup metabolic 1998 panel - Serum or PlasmaBasic metabolic panel Lab Routine Annual physical exam Expected: 06/04/2024 (Approximate), Expires: 06/04/2025NONY HealthcareComment on above:Expected: 06/04/2024 (Approximate), Expires: 06/04/2025Start: 06-04-2024 End: 24-88-9185TBH W Auto Differential panel - BloodCBC and differential Lab Routine Annual physical exam Expected: 06/04/2024 (Approximate), Expires: 0 06/04/2025NONY HealthcareComment on above:Expected: 06/04/2024 (Approximate), Expires: 06/04/2025Start: 06-04-2024 End: 01-80-0639Nlywspodwd A1c/Hemoglobin.total in BloodHemoglobin A1c Lab Routine Annual physical exam Expected: 06/04/2024 (Approximate), Expires: 06/04/2025[facility] Healthcare Work Phone: Comment on above:Expected: 06/04/2024 (Approximate), Expires: 06/04/2025Start: 06-04-2024 End: 43-90-5112Pnkoicf function 2000 panel - Serum or PlasmaHepatic function panel Lab Routine Annual physical exam Expected: 06/04/2024 (Approximate), Expires: 06/04/2025NONY HealthcareComment on above:Expected: 06/04/2024 (Approximate), Expires: 06/04/2025Start: 06-04-2024 End: 85-66-6623Wrqqe 1996 panel - Serum or PlasmaLipid panel Lab Routine Annual physical exam Expected: 06/04/2024 (Approximate), Expires: 06/04/2025NONY HealthcareComment on above:Expected: 06/04/2024 (Approximate), Expires: 06/04/2025Start: 06-04-2024 End: 98-36-9984Piralxue specific Ag [Mass/volume] in Serum or PlasmaPSA Lab Routine Annual physical exam Expected: 06/04/2024 (Approximate), Expires: 06/04/2025NONY HealthcareComment on above:Expected: 06/04/2024 (Approximate), Expires: 06/04/2025Start: 06-04-2024 End: 76-39-3406Ycwmyjgvcyg [Units/volume] in Serum or PlasmaTSH Lab Routine Annual physical exam Expected: 06/04/2024 (Approximate), Expires: 06/04/2025NOMS HealthcareComment on above:Expected: 06/04/2024 (Approximate), Expires: 06/04/2025Start: 33-84-5533Gmxraarvs vaccinationInfluenza Vaccine (#1)NOMS HealthcareStart: 08-40-6555Ytypxvxte for malignant neoplasm of colonNOMS Healthcare Payers DatePayer CategoryPayerPolicy [id number] ..[id number] [id number] 2..1.910798.3.579.2.11295-37-7411Hhgmaxb4068635 2..1.140997.3.579.2.78839-60-4670Tysxjbf1300919 2..1.946662.3.579.2.31086-65-1924Emlmscs3658145 2..1.026547.3.579.2.28903-52-4546Ajmqrlp3262885 2..1.311648.3.579.2.03539[id number] 2.16.84[id number] 2.16.840.1.253405.3.579.2.593 Social History DateTypeDetailFacilityStart: 49-17-9393Xba Assigned At [facility] [employer] Other Tobacco smoking status NHISTobacco smoking consumption unknownNOMS HealthcareStart: 02-64-1238Ren assigned at birthNot on fileNOMS HealthcareStart: 56-60-6786Avaufqb smoking status NHISNever smoked tobaccoNOMS HealthcareStart: 69-46-2042Uiavvhi use and exposureUser of smokeless tobaccoNOMS HealthcareStart: 17-03-1193Dlcqdhe of Social functionNOMS Healthcare History of Present illness Narrative 06-04-2024 Note Date & LvtmFulmFiitbcvb41-12-4015 History of Present illness Narrative* Jordan Sierra MD - 06/04/2024 3:19 PM ESTAssociated Problem(s): Diastasis recti Noted bulging in ventral abdomen with valsalva and likely diastasis recti. Discussed benign nature of condition and monitor. If develop increased pain or lump increases in size will need to see general surgery. * Jordan Sierra MD - 06/04/2024 3:18 PM ESTAssociated Problem(s): Annual physical exam Due for labs. Discussed proper diet and regular aerobic exercise. Need aerobic exercise 5-6 days a week for 30 minutes at a time. Smaller portions and limit total calories. Colonoguard normal in 2022. Tetanus every 10 years. Advised not to smoke. * Jordan Sierra MD - 06/04/2024 2:45 PM EST Images from the original note were not included. Subjective Patient ID: Justice Downey is a 54 y.o. male who presents for No chief complaint on file.. Presents for annual PE. Feels well today. Weight up 9 pounds in past year. Active at work and around house but no regular exercise. Tries to watch diet and eat healthy. Increased fruits and vegetables. Smaller portions and limits snacking. Tries to limit total daily calories. Due for labs. Cologuard normal October 2022. Concerned of possible ventral hernia. Notice bulge in abdominal wall above umbilicus. Bulges with straining or increased abdominal pressure. Mild discomfort. Typically doesn't bother patient but present for years. Not getting bigger. Review of Systems Constitutional: Negative for fatigue. Respiratory: Negative for cough, shortness of breath and wheezing. Cardiovascular: Negative for chest pain and palpitations. Gastrointestinal: Negative for abdominal pain, diarrhea, nausea and vomiting. Genitourinary: Negative for dysuria. Objective Physical Exam Constitutional: General: He is not in acute distress. Appearance: Normal appearance. HENT: Head: Normocephalic. Right Ear: Tympanic membrane and ear canal normal. Left Ear: Tympanic membrane and ear canal normal. Eyes: Extraocular Movements: Extraocular movements intact. Pupils: Pupils are equal, round, and reactive to light. Cardiovascular: Rate and Rhythm: Normal rate and regular rhythm. Heart sounds: No murmur heard. No friction rub. No gallop. Pulmonary: Breath sounds: Normal breath sounds. No wheezing, rhonchi or rales. Abdominal: General: Bowel sounds are normal. There is no distension. Palpations: Abdomen is soft. Tenderness: There is no abdominal tenderness. There is no guarding or rebound. Musculoskeletal: General: Normal range of motion. Left lower leg: No edema. Neurological: General: No focal deficit present. Mental Status: He is alert. Cranial Nerves: No cranial nerve deficit. Deep Tendon Reflexes: Reflexes normal. Assessment/Plan Problem List Items Addressed This Visit Annual physical exam - Primary Due for labs. Discussed proper diet and regular aerobic exercise. Need aerobic exercise 5-6 days a week for 30 minutes at a time. Smaller portions and limit total calories. Colonoguard normal in 2022. Tetanus every 10 years. Advised not to smoke. Relevant Orders Hemoglobin A1c Basic metabolic panel CBC and differential Hepatic function panel Lipid panel PSA TSH Diastasis recti Noted bulging in ventral abdomen with valsalva and likely diastasis recti. Discussed benign nature of condition and monitor. If develop increased pain or lump increases in size will need to see general surgery. [facility] Evaluation note 04-13-2021 Note Date & TaadQgzbQytunjto06-12-4414 Evaluation note* Encounter Date Diagnosis Assessment Notes Treatment Notes Treatment Clinical Notes Mar, Other specified postprocedural s tates (ICD-10 - Z98.890) Mar,Other tear of medial meniscus, current injury, right knee, subsequent encounter (ICD-10 - S83.241D) Activity as tolerated. Continue with daily strengthening exercises [facility] [email or web address] Other Evaluation note Note Date & TypeNoteFacilityEvaluation noteNo InformationNortGeisinger-Shamokin Area Community [facility] [email or web address] Other Evaluation note Note Date & TypeNoteFacilityEvaluation note* Diagnosis Annual physical exam- Primary Routine general medical examination at a health care facility Diastasis recti Diastasis of muscle documented in this encounter [facility] Healthcare Evaluation note Note Date & TypeNoteFacilityEvaluation note* Diagnosis Annual physical exam- Primary Routine general medical examination at a health care facility Diastasis recti Diastasis of muscle Adult hypothyroidism (CMS/HCC)- Primary Unspecified hypothyroidism documented in this encounter [facility] Healthcare Summary Purpose Family History No Family History Records FoundNo Family History Records FoundNo Family History Records FoundNo Family History Records Found Advance Directives No Advanced Directives Records FoundNo Advanced Directives Records FoundNo Advanced Directives Records FoundNo Advanced Directives Records Found Additional Source Comments (unrecognized sect ion and content) No Status Records FoundNo Status Records FoundNo Status Records FoundNo Status Records Found INFORMATION SOURCE (unrecogn ized section and content) DATE CREATED AUTHOR 03/01/2021 [facility] DATE CREATED AUTHOR AUTHOR'S ORGANIZ ATION 06/19/2021 [facility] DATE CREATED AUTHOR AUTHOR'S ORGANIZ ATION 10/08/2022 [facility] DATE CREATED AUTHOR AUTHOR'S ORGANIZ ATION 06/09/2024 [facility] EPIC REASON FOR VISIT (unrecogniz ed section and content) ReasonCommentsAnnual Exam Care Teams (unrecognized sec tion and content) Team MemberRelationshipSpecialtyStart DateEnd Date Jordan Sierra MD [address] [place] [address] PCP - [facility]12/25/22Te MemberRelationshipSpecialtyStart DateEnd Date Jordan Sierra MD [address] [place] [address] [facility]12/25/22Te MemberRelationshipSpecialtyStart DateEnd Date Jordan Sierra MD [address] [place] [address] [facility]12/25/22Te MemberRelationshipSpecialtyStart DateEnd Date Jordan Sierra MD [address] [place] [address] [facility]12/25/22 FOR RECORDS PERTAINING TO PATIENTS WHO ARE OR HAVE BEEN ENROLLED IN A CHEMICAL DEPENDENCY/SUBSTANCEABUSE PROGRAM, SOME INFORMATION MAY BE OMITTED. This clinical summary was aggregated from multiple sources. Caution should be exercised in using it in the provision of clinical care. This summary normalizes information from multiple sources, and as a consequence, information in this document may materially change the coding, format and clinical context of patient data. In addition, data may be omitted in some cases. CLINICAL DECISIONS SHOULD BE BASED ON THE PRIMARY CLINICAL RECORDS. [facility]. provides no warranty or guarantee of the accuracy or completeness of information in this document.
[2025-03-17 15:54] LABS: Alanine Aminotransferase 34 U/L (16-63); Albumin Globulin Ratio 1.2; Albumin Level 3.7 g/dL (3.4-5.0); Alkaline Phosphatase 90 U/L (46-116); Anion Gap 11.6; Aspartate Amino Transferase 17 U/L (15-37); Blood Urea Nitrogen 18.0 mg/dL (7.0-18.0); Calcium 8.6 mg/dL (8.5-10.1); Carbon Dioxide 28.3 mmol/L (21.0-32.0); Chloride 105 mmol/L (98-107); Cholesterol 178 mg/dL (<=200); Estimated GFR (African America >60 (>=60 mL/min/1.73m^2); Estimated GFR (Non-African Ame >60 (>=60 mL/min/1.73m^2); Globulin 3.2 g/dL; Glucose 101 mg/dL (74-106); HDL Cholesterol 30 mg/dL (40-60); Potassium 3.9 mmol/L (3.5-5.1); Sodium 141 mmol/L (136-145); Thyroid Stimulating Hormone 1.481 uIU/mL (0.358-3.740); Total Protein 6.9 g/dL (6.4-8.2); Triglycerides 365 mg/dL (<=150); VLDL CHOLESTEROL 73.0 mg/dL
[2025-03-17 16:14] LABS: Hematocrit 42.8 % (42.0-54.0); Hemoglobin 14.3 g/dL (14.0-18.0); Immature Granulocytes Abs Auto 0.02 10^3/uL (0.00-0.03); Immature Granulocytes Pct Auto 0.3 % (0.0-0.5); Lymphocytes Absolute Auto 2.4 10^3/uL (1.2-3.8); Mean Corpuscular HGB Conc 33.4 g/dL (29.9-35.2); Mean Corpuscular Hemoglobin 29.6 pg (25.9-34.0); Mean Corpuscular Volume 88.6 fL (80.0-94.0); Platelet Count 232 10^3/uL (150-450); Red Blood Count 4.83 10^6/uL (4.70-6.10); White Blood Count 7.9 10^3/uL (4.0-11.0)
== END 2025-03-17 14:47 | disposition home or self-care (01) ==
LOC: LAB 14:48
PROVIDERS: PCP Family Medicine; Visit Provider Family Medicine
DX: Z00.00 Encounter for general adult medical examination without abnormal findings (principal); Z12.5 Encounter for screening for malignant neoplasm of prostate; E03.9 Hypothyroidism, unspecified
CPT/HCPCS: 36415; 80053; 80061; 83036; 84439; 84443; 85025; G0103